=== PATIENT | male | born 1950 | race Caucasian/White ===

== ENCOUNTER 2018-03-24 06:03 | Emergency (ER) | payer MEDICARE ==
[~2018-03-24] VITALS: Ht 172.7 cm; Wt 73.5 kg
--- NOTE | 2018-03-24 06:23 | NUR ---
Dr. Funk at bedside for MSE.
[2018-03-24] MEDS ORDERED: LOPRESSOR PO (06:25)
[2018-03-24] MEDS ORDERED: SITA1TAB6 PO (06:25)
[2018-03-24] MEDS ORDERED: LOSA100T15 PO (06:25)
[2018-03-24] MEDS ORDERED: FARXIGA PO (06:25)
[2018-03-24] MEDS ORDERED: INSU100I26 SQ (06:25)
[2018-03-24] MEDS ORDERED: CLOP75TA15 PO (06:25)
[2018-03-24] MEDS ORDERED: HYDROMORPHONE 1 MG/1 ML DISP.SYRIN ONE (06:39)
[2018-03-24] MEDS ORDERED: ONDANSETRON 4 MG/2 ML VIAL ONE (06:40)
--- NOTE | 2018-03-24 06:40 | NUR ---
Xray at bedside.
[2018-03-24 06:41] LABS: BASOPHILS % (AUTO) 0.5 % (0.0-2.0); EOSINOPHILS # (AUTO) 0.1 K/uL (0.0-0.7); EOSINOPHILS % (AUTO) 1.5 % (0.0-7.0); HEMATOCRIT 41.4 % (36.7-47.1); LYMPHOCYTES # (AUTO) 0.9 K/uL (20.0-40.0); LYMPHOCYTES % (AUTO) 9.9 % (20.5-51.5); MEAN CORPUSCULAR HEMOGLOBIN 29.1 uug (23.8-33.4); MEAN CORPUSCULAR HGB CONC 34 g/dL (32.5-36.3); MEAN CORPUSCULAR VOLUME 85.6 fL (73.0-96.2); MONOCYTES # (AUTO) 0.9 K/uL (2.0-10.0); MONOCYTES % (AUTO) 10.8 % (0.0-11.0); NEUTROPHILS # (AUTO) 6.7 K/uL (1.8-8.9); NEUTROPHILS % (AUTO) 77.3 % (38.5-71.5); PLATELET COUNT (AUTO) 261 K/uL (152-348); RED BLOOD CELL COUNT(AUTO) 4.83 MIL/uL (4.06-5.63); WHITE BLOOD COUNT (AUTO) 8.7 K/uL (3.6-10.2)
[2018-03-24] MEDS ORDERED: ONDANSETRON 4 MG/2 ML VIAL IV ONE (06:45)
[2018-03-24] MEDS ORDERED: HYDROMORPHONE 1 MG/1 ML DISP.SYRIN IV ONE (06:45)
[2018-03-24 06:48] LABS: CREATININE 1.1 mg/dL (0.6-1.3); POTASSIUM 3.6 mmol/L (3.5-5.1)
[2018-03-24 07:02] LABS: BILIRUBIN,DIRECT 0.1 mg/dL (0.0-0.2); BILIRUBIN,TOTAL 0.4 mg/dL (0.2-1.0); TOTAL PROTEIN, SERUM 7.5 g/dL (6.4-8.2)
--- NOTE | 2018-03-24 07:04 | NUR ---
Report given to Sameer Sotelo RN.
--- NOTE | 2018-03-24 07:07 | NUR ---
RECIEVED REPORT, ASSUME CARE. PATIENT RESTING IN BED PAIN IMPROVED RESPIRATIONS EVEN AND UNLABORED NO APPARENT DESTRESS.
--- NOTE | 2018-03-24 10:12 | NUR ---
patient awating arival of to be taken home. No distress at this time resting in the bed.
[2018-03-24 10:34] VITALS: BP 136/74
== END 2018-03-24 10:37 | disposition home or self-care (01) ==
LOC: ER 06:08
DX: K80.50 Calculus of bile duct without cholangitis or cholecystitis without obstruction (principal); I10 Essential (primary) hypertension; E11.9 Type 2 diabetes mellitus without complications; Z79.4 Long term (current) use of insulin; Z79.01 Long term (current) use of anticoagulants
CPT/HCPCS: 36415; 71045; 76705; 80048; 80076; 83690; 83880; 84484; 85025; 85730; 93005; 96374; 96375; 99285; J1170; J2405; 70030-TC; A4663